=== PATIENT | male | born 1985 | race Caucasian/White ===

== ENCOUNTER 2016-08-15 00:09 | Emergency (ER) | payer MEDICAID, OTHER ==
[~2016-08-15] VITALS: Ht 188 cm; Wt 83.9 kg
[2016-08-15] MEDS ORDERED: cefTRIAXone 1GM/50ML D5W 50 ML IV ONE ×2 (00:28→01:00)
[2016-08-15] MEDS ORDERED: HYDROmorphone HCL 2 MG/ML VL IV ONE ×2 (00:30→03:45)
[2016-08-15] MEDS ORDERED: TETANUS-DIPTH-ACEL PERTUSSIS 0.5ML SYRG IM ONE (00:30)
[2016-08-15] MEDS ORDERED: ONDANSETRON HCL 4 MG/2 ML VIAL IV ONE (00:30)
[2016-08-15] MEDS ORDERED: SODIUM CHLORIDE 0.9% 1,000 ML IV ONE (00:30)
[2016-08-15 00:55] LABS: INR 1.04 (0.9-1.15); Partial Thromboplastin Time 26.1 sec (22.64-33.71); Prothrombin Time 11.3 sec (9.37-12.3)
[2016-08-15 01:07] LABS: Basophils # (auto) 0.1 uL; Basophils % (auto) 0.5 % (0.0-2.0); Eosinophils # (auto) 0.2 uL; Eosinophils % (auto) 1.8 % (0.0-7.0); Hematocrit 50.3 % (41.0-53.0); Hemoglobin 16.8 g/dL (13.5-17.5); Lymphocytes # (auto) 4.1 uL; Lymphocytes % (auto) 33.5 % (10.0-50.0); Mean Corpuscular Hemoglobin 31.9 pg (28.0-32.0); Mean Corpuscular Hgb Conc. 33.4 g/dL (32.0-36.0); Mean Corpuscular Volume 95.3 fL (80.0-100.0); Monocytes % (auto) 8.3 % (0.0-12.0); Neutrophils # (auto) 6.8 uL; Neutrophils % (auto) 55.9 % (37.0-80.0); Platelet Count (auto) 346 10^3/uL (140-450); Red Cell Distribution Width 13.6 % (11.6-16.0); White Blood Cell 12.1 10^3/uL (4.4-10.8)
[2016-08-15 01:16] LABS: Albumin 3.7 g/dL (3.4-5.0); Calcium 8.4 mg/dL (8.5-10.1); Potassium 3.7 mmol/L (3.5-5.1)
[2016-08-15 01:19] LABS: Bilirubin, Total 0.7 mg/dL (0.2-1.0); Total Protein 7.5 g/dL (6.4-8.2)
[2016-08-15 05:53] VITALS: BP 159/85
== END 2016-08-15 06:09 | disposition short-term general hospital (02) ==
LOC: ER 00:09
DX: S71.102A Unspecified open wound, left thigh, initial encounter (principal); S61.402A Unspecified open wound of left hand, initial encounter; F12.10 Cannabis abuse, uncomplicated; W34.00XA Accidental discharge from unspecified firearms or gun, initial encounter; Y93.89 Activity, other specified; Y99.8 Other external cause status; Y92.89 Other specified places as the place of occurrence of the external cause
CPT/HCPCS: 36415; 73120; 73552; 80053; 80307; 85025; 85610; 85730; 90471; 90715; 94761; 96361; 96365; 96375; 96376; 99285; J0696; J1170; J2405